=== PATIENT | male | born 1980 | race Caucasian/White ===

== ENCOUNTER 2020-07-17 09:08 | Emergency (ER) | payer OTHER ==
[~2020-07-17] VITALS: Ht 180.3 cm; Wt 84.8 kg
[~2020-07-17 09:08] MED LIST: NOHOMEMEDICATIONS
[2020-07-17 09:32] LABS: HEMATOCRIT 47.7 % (42.0-52.0); HEMOGLOBIN 15.9 gm/dL (14.0-18.0); MCH 29.5 pg (26.0-34.0); MCHC 33.3 g/dL (28.0-37.0); MCV 88.5 fL (80.0-100.0); MPV 8.9 fl. (7.2-11.1); RBC 5.38 mil/uL (4.50-6.00); WBC 11.5 thou/uL (4.0-11.0)
[2020-07-17 09:43] LABS: POTASSIUM 4.4 mmol/L (3.5-5.1)
[2020-07-17 09:47] LABS: ALBUMIN 3.5 g/dL (3.4-5.0); TOTAL BILIRUBIN 0.4 mg/dL (<0.1-1.0); TOTAL PROTEIN 8.2 g/dL (6.4-8.2)
[2020-07-17] MEDS ORDERED: BACTRIM DS TAB1 EACH PO (11:01)
[2020-07-17] MEDS ORDERED: CEPHALEXIN 250250 M1 PO (11:01)
[2020-07-17 11:06] VITALS: BP 120/85
--- NOTE | 2020-07-17 16:13 | EKG ---
[place] [address] ELECTROCARDIOGRAM REPORT Name: FALLON RODRIGUEZ Room: [facility]#: [id number] Admission: 07/17/20 Attend Phys: Discharge: 07/17/20 Date of : 80 Date of Service: 07/17/20910 Report #: [id number] THIS REPORT FOR: //name// [facility] ED Test Date: 2020-07-17 Test Time: 09:11:27 Pat Name: FALLON RODRIGUEZ Department: Room: Gender: Cra Officer: [facility] : 1980 Requested By: Saji Spangler Order Number: [id number] MD: Mario Araujo Measurements Intervals [place] Rate: 91 P: 82 [place]: 134 QRS: 84 QRSD: 97 T: 60 QT: 336 QTc: 414 Interpretive Statements Sinus rhythm RSR' in V1 or V2, right VCD or RVH ST elev, probable normal early repol pattern No previous ECG available for comparison Electronically Signed On 07-17-2020 16:12:45 CDT by Mario Araujo [email or web address] <ELECTRONICALLY SIGNED> By: Mario Araujo MD, FAC 07/17/20 1612 0 Mario Araujo MD, [facility] /EPI
== END 2020-07-17 11:07 | disposition home or self-care (01) ==
LOC: M.ERS 09:08
PROVIDERS: Emergency Medicine
DX: R00.2 Palpitations (principal); F15.10 Other stimulant abuse, uncomplicated; L03.114 Cellulitis of left upper limb

== ENCOUNTER 2020-08-11 11:09 | Emergency (ER) | payer OTHER ==
[~2020-08-11] VITALS: Ht 180.3 cm; Wt 79.4 kg
[~2020-08-11 11:09] MED LIST changes: +BACTRIM DS TAB1 EACH PO; +CEPHALEXIN 250250 M1 PO
[2020-08-11 11:26] LABS: ABSOLUTE BASOPHILS 0.1 thou/uL (0.0-0.2); ABSOLUTE EOSINOPHILS 0.3 thou/uL (0.0-0.7); ABSOLUTE LYMPHOCYTES 1.9 thou/uL (0.8-5.3); ABSOLUTE MONOCYTES 0.6 thou/uL (0.0-1.2); ABSOLUTE NEUTROPHILS 3.7 thou/uL (1.6-8.1); BASOPHILS 1.2 %; EOSINOPHILS 4.4 %; HEMATOCRIT 50.3 % (42.0-52.0); HEMOGLOBIN 16.7 gm/dL (14.0-18.0); LYMPHOCYTES 28.8 %; MCH 29.6 pg (26.0-34.0); MCHC 33.2 g/dL (28.0-37.0); MCV 89.3 fL (80.0-100.0); MONOCYTES 8.6 %; MPV 8.4 fl. (7.2-11.1); NUCLEATED RBCS 0 /100WBC; PLATELET COUNT* 274 thou/uL (150-400); RBC 5.63 mil/uL (4.50-6.00); RDW-CV 14.3 % (10.5-14.5); WBC 6.6 thou/uL (4.0-11.0)
[2020-08-11 11:38] LABS: CALCIUM 8.2 mg/dL (8.5-10.1); CREATININE 1.1 mg/dL (0.6-1.3); POTASSIUM 4.1 mmol/L (3.5-5.1)
[2020-08-11 11:49] LABS: ALBUMIN 3.7 g/dL (3.4-5.0); MAGNESIUM 2.2 mg/dL (1.8-2.4); TOTAL BILIRUBIN 0.3 mg/dL (<0.1-1.0); TOTAL PROTEIN 7.8 g/dL (6.4-8.2)
[2020-08-11] MEDS ORDERED: FLEXERIL PO (13:52)
[2020-08-11 14:06] VITALS: BP 124/53
--- NOTE | 2020-08-12 11:04 | EKG ---
[place] [address] ELECTROCARDIOGRAM REPORT Name: FALLON RODRIGUEZ Room: [facility]#: [id number] Admission: 08/11/20 Attend Phys: Discharge: 08/11/20 Date of : 80 Date of Service: 08/11/20 1113 Report #: [id number] THIS REPORT FOR: //name// [facility] ED Test Date: 2020-08-11 Test Time: 11:13:06 Pat Name: FALLONALICIA RODRIGUEZ Department: Room: Gender: [employer] Receiving Clerk: NOA : 1980 Requested By: Erich Way Order Number: [id number] MD: Reed Leggett Measurements Intervals [place] Rate: 72 P: 80 [place]: 133 QRS: 83 QRSD: 100 T: 62 QT: 386 QTc: 423 Interpretive Statements Sinus rhythm ST elev, probable normal early repol pattern Baseline wander in lead(s) II,III,aVF Compared to ECG 07/17/2020 09:11:27 Right ventricular hypertrophy no longer present ST (T wave) deviation still present Electronically Signed On 08-12-2020 11:04:43 CDT by Reed Leggett [email or web address] <ELECTRONICALLY SIGNED> By: Reed Leggett MD, FACC 08/12/20 1104 1113 1113 Reed Leggett MD, FAC /EPI
== END 2020-08-11 14:08 | disposition home or self-care (01) ==
LOC: M.ERS 11:09
PROVIDERS: Emergency Medicine Emergency Medical Services
DX: R07.89 Other chest pain (principal); F17.210 Nicotine dependence, cigarettes, uncomplicated